=== PATIENT | male | born 1960 | race Caucasian/White ===

== ENCOUNTER 2020-05-27 11:17 | Day surgery (SDC) | payer OTHER, SELFPAY ==
[2020-05-20 09:32] VITALS: BMI 29.2
--- NOTE | 2020-05-25 08:34 | P.CONAN_ITS ---
Documented by User: Migdalia Dunbar 05/25/20 08:35 HPI - Anesthesia Eval Consult details Narrative: 59yo M for colonoscopy: screening [facility] Past Medical History Medical History Back pain HTN (hypertension) Surgical History Surgical History H/O arthroscopic knee surgery History of inguinal hernia repair, bilateral Social History Social History (Updated 05/25/20 @ 08:35 by Migdalia Dunbar) Smoking Status: Current every day smoker Tobacco Type: Cigarette Packs Per Day: 1.5 Cigarettes Per Day: 30.0 Use of substances other than those prescribed or required for medical reasons: No Advance Directives: No Advance Directives Information Provided: Yes Advance Directives on File: No Meds Allergies Allergy/AdvReac Type Severity Reaction Status Date / Time No Known Allergies Allergy Verified 05/20/20 09:34 Home Medications Medication Instructions Recorded Confirmed Type acetaminophen 1,000 mg PO Q6H PRN 05/20/20 History ascorbic acid (vitamin C) [Vitamin 500 mg PO DAILY 05/20/20 History C] ibuprofen 400 mg PO Q6H PRN 05/20/20 History lisinopril 20 mg PO DAILY 05/20/20 History multivitamin 1 tab PO DAILY 05/20/20 History Exam Exam Date and Time: May 25, 202034 Height,Weight and Vital Signs: Height 5 ft 8 in Weight 87.09 kg Documented by User: Kirstin Olguin 05/27/20 13:54 [facility] Past Medical History Medical History Back pain HTN (hypertension) Surgical History Surgical History H/O arthroscopic knee surgery History of inguinal hernia repair, bilateral Social History Social History (Updated 05/25/20 @ 08:35 by Migdalia Dunbar) Smoking Status: Current every day smoker Tobacco Type: Cigarette Packs Per Day: 1.5 Cigarettes Per Day: 30.0 Use of substances other than those prescribed or required for medical reasons: No Advance Directives: No Advance Directives Information Provided: Yes Advance Directives on File: No Meds Allergies Allergy/AdvReac Type Severity Reaction Status Date / Time No Known Allergies Allergy Verified 05/20/20 09:34 Home Medications Medication Instructions Recorded Confirmed Type acetaminophen 1,000 mg PO Q6H PRN 05/20/20 History ascorbic acid (vitamin C) [Vitamin 500 mg PO DAILY 05/20/20 History C] ibuprofen 400 mg PO Q6H PRN 05/20/20 History lisinopril 20 mg PO DAILY 05/20/20 History multivitamin 1 tab PO DAILY 05/20/20 History Exam Height,Weight and Vital Signs: Vital Signs Temp Pulse Resp Pulse Ox 05/27/20 11:57 98.1 F 80 18 94 BP 146/80 Airway Mallampati Class: II TM Dist: >3cm Neck ROM: Full Heart: RRR Lungs: CTAB Assessment and Plan Assessment Anesthesia Assessment: Anesthesia Plan Discussed and Chart Reviewed Final Anesthetic Review NPO: Yes ASA Class: II Final Preanesthetic Review: No Changes in Pt Med Stat, Meds/Allgs Chart Reviewed, Consent Obtained/Reviewed and Anes Risks/Benef Reviewed Patient Risk: Intermediate Procedure Risk: Low Anesthetic Plan Anesthetic Plan: MAC: Disposition: Standard PACU
[2020-05-26 10:39] VITALS: BMI 29.2
--- NOTE | 2020-05-27 07:51 | MHC.SHP ---
Pre-Procedural Eval Section A The patient is an INPATIENT: No Changes since office visit: No Cold of Flu in the past 2 weeks, No New Medical Problems, No Changes in Medication and No Patient answered all questions The History & Physical has been completed within 30 days and I have reviewed it.: Yes Section B Chief Complaint: SCREENING Allergies: Allergies Allergy/AdvReac Type Severity Reaction Status Date / Time No Known Allergies Allergy Verified 05/20/20 09:34 Plan Patient has been examined and remains a candidate for the planned procedure
[2020-05-27 11:57] VITALS: PULSE 80; RESP 18; TEMP 36.7; O2SAT 94
[2020-05-27] MEDS: Lactated Ringers 1,000 ML 100 ML IVCONT (12:06)
[2020-05-27] MEDS: Albuterol Sulfate (0.083%) 2.5 MG/3 ML VIAL.NEB INHALE (12:17)
[2020-05-27 12:30] VITALS: BP 146/80
--- NOTE | 2020-05-27 13:39 | PM.OP ---
Brief Operative Note Date of procedure: 05/27/20 Pre-op diagnosis: screening Post-op diagnosis: other (colon polyp) Procedure: colonoscopy Surgeon: Paul Calderon Anesthesia: MAC Estimated blood loss (mL): 0 Pathology: other (polyp 35 cm) Condition: stable Disposition: PACU
[2020-05-27 13:40] VITALS: BP 111/64; PULSE 71; RESP 12; TEMP 36.4; O2SAT 93
[2020-05-27 13:59] VITALS: BP 134/75; PULSE 60; RESP 17; O2SAT 98
[2020-05-27 14:13] VITALS: BP 140/69; PULSE 68; RESP 16; TEMP 36.4; O2SAT 96
--- NOTE | 2020-05-27 14:44 | HO.POSTANES ---
Post Anesthesia Evaluation Post Anesthesia Evaluation Vital Signs: Vital Signs Temp Pulse Resp BP Pulse Ox 05/27/20 14:13 97.6 F 68 16 140/69 H 96 05/27/20 13:59 60 17 134/75 98 05/27/20 13:40 97.6 F 71 12 111/64 93 05/27/20 12:30 146/80 H 05/27/20 11:57 98.1 F 80 18 94 Anesthesia: Monitored Mental Status: Awake Pain Control: Satisfactory Nausea/Vomiting: None Hydration: Adequate Anesthesia-Related Issues: No Anes. Related Issues
--- NOTE | 2020-05-27 15:36 | OP_ITS ---
SURGEON: Paul Calderon MD INDICATIONS: Colon cancer screening. PREOPERATIVE DIAGNOSIS: POSTOPERATIVE DIAGNOSIS: PROCEDURE PERFORMED: Colonoscopy to the terminal ileum with snare polypectomy. ESTIMATED BLOOD LOSS: COMPLICATIONS: ANESTHESIA: ASSISTANTS: SPECIMENS: MEDICATIONS: Monitored anesthesia care. DESCRIPTION OF PROCEDURE: History and physical performed. The risks and benefits of the procedure were explained to the patient. Informed consent was obtained. The patient was placed in the left lateral decubitus position. A digital rectal exam was performed and was found to be normal. The Olympus pediatric video colonoscope was introduced into the rectum and advanced to the cecum without difficulty. The cecum was identified by transillumination, palpation, and identification of ileocecal valve. Examination was performed and the scope was removed. He tolerated the procedure well and was taken to recovery area in stable condition. FINDINGS: The terminal ileum was normal. The visualized colonic mucosa was normal. The quality of the prep was good. A single polyp at 35 cm measuring less than 10 mm was removed with a snare. The polyp was recovered via suction. No other polyps were noted. Retroflexed examination showed large internal hemorrhoids. There was mild sigmoid diverticulosis. IMPRESSION: Colon polyp. RECOMMENDATION: Follow up the biopsy results. MD FELIPA Jaeger/BURT / [id number]
== END 2020-05-27 14:51 | disposition home or self-care (01) ==
PROVIDERS: PCP Physician Assistant; Visit Provider Internal Medicine Gastroenterology
PROC: 0DJD8ZZ Inspection of Lower Intestinal Tract, Via Natural or Artificial Opening Endoscopic (ICD-10-PCS; CPT 45378; principal; 2020-05-27 12:20)
DX: Z12.11 Encounter for screening for malignant neoplasm of colon (principal); Z80.0 Family history of malignant neoplasm of digestive organs; K63.5 Polyp of colon; K57.30 Diverticulosis of large intestine without perforation or abscess without bleeding; K64.8 Other hemorrhoids; I10 Essential (primary) hypertension; F17.210 Nicotine dependence, cigarettes, uncomplicated; Z79.899 Other long term (current) drug therapy
CPT/HCPCS: 45385; 88305; 94640